=== PATIENT | female | born 1970 | race Caucasian/White ===

== ENCOUNTER 2018-02-02 19:58 | Emergency (ER) | payer BC ==
[2018-02-02] MEDS: ACETAMINOPHEN 325 MG TAB PO (23:09)
[2018-02-02] MEDS: morphine 2 MG INJ IV (23:09)
[2018-02-02] MEDS: ONDANSETRON 4 MG INJ IV (23:10)
[2018-02-02] MEDS: SOD CHLORIDE 0.9% 1,000 ML IV (23:10)
[2018-02-02 23:24] LABS: ADD MAN DIFF? NO
[2018-02-02 23:25] LABS: WHITE BLOOD COUNT 19.3 10^3/ul (4.8-10.8)
[2018-02-02 23:25] LABS: BASOPHIL # 0.1 10^3/ul (0.0-0.1); BASOPHILS % 0.4 % (0.0-2.0); HEMATOCRIT 46.8 % (37.0-47.0); HEMOGLOBIN 15.6 g/dl (12.0-16.0); LYMPHOCYTES # 1.2 10^3/ul (0.8-2.9); MEAN CORPUSCULAR HEMOGLOBIN 30.6 pg (29.0-33.0); MEAN CORPUSCULAR HGB CONC 33.3 g/dl (32.0-37.0); MEAN CORPUSCULAR VOLUME 91.9 fl (82.0-101.0); MEAN PLATELET VOLUME 8.8 fl (7.4-10.4); MONOCYTE # 0.6 10^3/ul (0.3-0.9); NEUTROPHIL # 17.4 10^3/ul (1.6-7.5); NEUTROPHILS % 90.1 % (39.0-77.0); PLATELET COUNT 382 10^3/UL (140-415); RED BLOOD COUNT 5.09 10^6/ul (4.20-5.40); RED CELL DISTRIBUTION WIDTH 12.8 % (11.5-14.5)
[2018-02-02 23:33] LABS: ADD UMIC YES; UR ASCORBIC ACID NEGATIVE (NEGATIVE); UR BILIRUBIN (Dip) NEGATIVE (NEGATIVE); UR BLOOD (Dip) 1+ mg/dL (NEGATIVE); UR CLARITY SLIGHTLY CLOUDY (CLEAR); UR COLOR YELLOW (YELLOW); UR GLUCOSE (Dip) NEGATIVE (NEGATIVE); UR KETONES (Dip) TRACE mg/dL (NEGATIVE); UR LEUKOCYTE ESTERASE (Dip) NEGATIVE Leu/ul (NEGATIVE); UR MUCUS MANY /HPF (NONE SEEN); UR NITRITE (Dip) NEGATIVE (NEGATIVE); UR RBC 3 /HPF (0-5); UR SPECIFIC GRAVITY (Dip) 1.026 (1.003-1.030); UR SQUAMOUS EPITHELIAL CELL FEW /HPF (FEW); UR TOTAL PROTEIN (Dip) NEGATIVE (NEGATIVE); UR UROBILINOGEN (Dip) NEGATIVE (NEGATIVE); UR WBC 10 /HPF (0-5)
[2018-02-02 23:45] LABS: INR 0.95; PARTIAL THROMBOPLASTIN TIME 31.5 Sec (25.0-35.0); PROTIME 12.8 Sec (11.9-14.9)
[2018-02-02 23:52] LABS: ALANINE AMINOTRANSFERASE 46 IU/L (13-69); ALBUMIN/GLOBULIN RATIO 1.35; ALKALINE PHOSPHATASE 81 IU/L (42-121); ANION GAP 15 (8-16); ASPARTATE AMINO TRANSFERASE 32 IU/L (15-46); BILIRUBIN,INDIRECT 0.3 mg/dl (0-1.1); BILIRUBIN,TOTAL 0.3 mg/dl (0.2-1.3); BLOOD UREA NITROGEN 11 mg/dl (7-20); CALCIUM 9.7 mg/dl (8.4-10.2); CARBON DIOXIDE 26 mmol/L (21-31); CHLORIDE 105 mmol/L (97-110); GLUCOSE 132 mg/dl (70-220); LIPASE 49 U/L (23-300); SODIUM 142 mmol/L (135-144); TOTAL PROTEIN 8.7 g/dl (6.1-8.1)
== END 2018-02-03 02:00 | disposition home or self-care (01) ==
LOC: FTE 02-03 02:00
DX: T47.4X1A Poisoning by other laxatives, accidental (unintentional), initial encounter (principal); I10 Essential (primary) hypertension; R11.10 Vomiting, unspecified; R10.84 Generalized abdominal pain
CPT/HCPCS: 36415; 74176; 80053; 81001; 81025; 83690; 85025; 85610; 85730; 96374; 96375; 99285-25

== ENCOUNTER 2018-02-03 12:09 | Day surgery (SDC) | payer BC ==
[2018-02-03] MEDS ORDERED: PROPOFOL 20 ML (15:00)
[2018-02-03] MEDS ORDERED: FENTAnyl 50 MCG/ML VIAL (15:00)
[2018-03-11] MEDS ORDERED: LACTATED RINGER'S 1,000 ML IV* (11:30)
[2018-03-11] MEDS ORDERED: CEFAZOLIN 2 GM/50 ML (PMX) 50 ML IVPB (11:30)
== END 2018-02-03 18:06 | disposition home or self-care (01) ==
LOC: GIL 12:09
DX: K51.814 Other ulcerative colitis with abscess (principal); K63.5 Polyp of colon; E66.9 Obesity, unspecified; Z68.33 Body mass index [BMI] 33.0-33.9, adult; I10 Essential (primary) hypertension
CPT/HCPCS: 45380; 88305

== ENCOUNTER 2018-03-11 13:36 | Day surgery (SDC) | payer BC ==
[~2018-03-11 13:36] MED LIST: GLYCOPYRROLATE 0.4 MG INJ
[2018-03-11] MEDS ORDERED: LIDOCAINE 1% (MPF) 30 ML INJ (16:41)
[2018-03-11] MEDS ORDERED: ONDANSETRON 4 MG INJ (16:42)
[2018-03-11] MEDS ORDERED: SUCCINYLCHOLINE CHLORIDE 100 MG/5 ML SYG IV (16:42)
[2018-03-11] MEDS ORDERED: LIDOCAINE 100 MG SYRINGE (16:42)
[2018-03-11] MEDS ORDERED: ROCURONIUM 50 MG INJ (16:42)
[2018-03-11] MEDS ORDERED: PROPOFOL 20 ML (16:42)
[2018-03-11] MEDS ORDERED: FENTAnyl 50 MCG/ML VIAL (16:42)
[2018-03-11] MEDS ORDERED: DEXAMETHASONE 4 MG/ML 1 ML INJ (17:02)
[2018-03-11] MEDS ORDERED: CEFAZOLIN 1 GM INJ (17:10)
[2018-03-11] MEDS ORDERED: BUPIVACAINE 0.5%/EPI (SDV) 30 ML INJ (17:12)
[2018-03-11] MEDS: BUPIVACAINE 0.5%/EPI (SDV) 30 ML INJ INJ (17:21)
[2018-03-11] MEDS: LIDOCAINE 1% (MPF) 30 ML INJ INJ (17:21)
[2018-03-11] MEDS ORDERED: OXYCODONE/ACETAMINOPHEN (5/325) TAB PO ×2 (18:00)
[2018-03-11] MEDS ORDERED: ONDANSETRON 4 MG INJ IV ×2 (18:00)
[2018-03-11] MEDS ORDERED: KETOROLAC 30 MG INJ IV (18:00)
[2018-03-11] MEDS ORDERED: HYDROCODONE/APAP (5/325) TAB PO (18:00)
[2018-03-11] MEDS ORDERED: FENTAnyl 50 MCG/ML VIAL IV ×2 (18:00)
[2018-03-11] MEDS: HYDROCODONE/APAP (5/325) TAB PO (18:53)
== END 2018-03-11 19:30 | disposition home or self-care (01) ==
LOC: SDS 13:36
DX: K51.90 Ulcerative colitis, unspecified, without complications (principal); K60.3 Anal fistula; K64.4 Residual hemorrhoidal skin tags
CPT/HCPCS: 45300; 88305

== ENCOUNTER 2018-06-07 13:41 | Emergency (ER) | payer BC ==
[2018-06-07 17:26] LABS: ADD MAN DIFF? NO
[2018-06-07] MEDS: ONDANSETRON 4 MG INJ IV (17:26)
[2018-06-07] MEDS: METHYLPREDNISOLONE 125 MG INJ IV (17:26)
[2018-06-07] MEDS: HYDROmorphONE 1 MG/ML SYG IV (17:27)
[2018-06-07] MEDS: SOD CHLORIDE 0.9% 1,000 ML IV (17:27)
[2018-06-07 17:28] LABS: WHITE BLOOD COUNT 9.6 10^3/ul (4.8-10.8)
[2018-06-07 17:28] LABS: BASOPHILS % 0.4 % (0.0-2.0); EOSINOPHILS # 0.1 10^3/ul (0.0-0.5); EOSINOPHILS % 1.3 % (0.0-7.0); HEMATOCRIT 33.5 % (37.0-47.0); HEMOGLOBIN 10.2 g/dl (12.0-16.0); LYMPHOCYTES # 1.9 10^3/ul (0.8-2.9); LYMPHOCYTES % 20.3 % (15.0-51.0); MEAN CORPUSCULAR HEMOGLOBIN 25.1 pg (29.0-33.0); MEAN CORPUSCULAR HGB CONC 30.4 g/dl (32.0-37.0); MEAN CORPUSCULAR VOLUME 82.3 fl (82.0-101.0); MEAN PLATELET VOLUME 8.3 fl (7.4-10.4); MONOCYTE # 0.7 10^3/ul (0.3-0.9); MONOCYTES % 7.5 % (0.0-11.0); NEUTROPHIL # 6.7 10^3/ul (1.6-7.5); NEUTROPHILS % 70.1 % (39.0-77.0); PLATELET COUNT 551 10^3/UL (140-415); RED BLOOD COUNT 4.07 10^6/ul (4.20-5.40); RED CELL DISTRIBUTION WIDTH 14.3 % (11.5-14.5)
[2018-06-07 17:47] LABS: ALANINE AMINOTRANSFERASE 20 IU/L (13-69); ALBUMIN/GLOBULIN RATIO 0.95; ALKALINE PHOSPHATASE 86 IU/L (42-121); ANION GAP 9 (5-13); ASPARTATE AMINO TRANSFERASE 24 IU/L (15-46); BILIRUBIN,INDIRECT 0.3 mg/dl (0-1.1); BILIRUBIN,TOTAL 0.3 mg/dl (0.2-1.3); BLOOD UREA NITROGEN 9 mg/dl (7-20); CALCIUM 8.7 mg/dl (8.4-10.2); CARBON DIOXIDE 25 mmol/L (21-31); CHLORIDE 103 mmol/L (97-110); CREATININE 0.61 mg/dl (0.44-1.00); Estimated GFR > 60 mL/min (>60); GLUCOSE 92 mg/dl (70-220); POTASSIUM 4.1 mmol/L (3.5-5.1); SODIUM 137 mmol/L (135-144); TOTAL PROTEIN 8.2 g/dl (6.1-8.1)
[2018-06-07] MEDS: SOD CHLORIDE 0.9% 100 ML (18:03)
[2018-06-07] MEDS: IOHEXOL 300MG/ML 150 ML BTL (18:04)
== END 2018-06-07 21:40 | disposition home or self-care (01) ==
LOC: E/R 13:41
DX: K51.811 Other ulcerative colitis with rectal bleeding (principal); I10 Essential (primary) hypertension
CPT/HCPCS: 74177; 80053; 85025; 96374; 96375; 99285-25

== ENCOUNTER 2018-08-13 10:09 | Inpatient (IN) | payer BC ==
[2018-08-13 11:10] LABS: ADD MAN DIFF? NO
[2018-08-13 11:11] LABS: WHITE BLOOD COUNT 12.8 10^3/ul (4.8-10.8)
[2018-08-13 11:11] LABS: ABNORMAL IP MESSAGE 1; BASOPHILS % 0.3 % (0.0-2.0); EOSINOPHILS % 0.2 % (0.0-7.0); HEMATOCRIT 28.2 % (37.0-47.0); HEMOGLOBIN 7.8 g/dl (12.0-16.0); LYMPHOCYTES # 1.3 10^3/ul (0.8-2.9); MEAN CORPUSCULAR HEMOGLOBIN 18.5 pg (29.0-33.0); MEAN CORPUSCULAR HGB CONC 27.7 g/dl (32.0-37.0); MEAN PLATELET VOLUME 7.9 fl (7.4-10.4); MONOCYTE # 1.1 10^3/ul (0.3-0.9); MONOCYTES % 8.9 % (0.0-11.0); NEUTROPHIL # 10.2 10^3/ul (1.6-7.5); NEUTROPHILS % 79.9 % (39.0-77.0); NUCLEATED RED BLOOD CELLS% 0.3 /100WBC (0.0-0.0); PLATELET COUNT 631 10^3/UL (140-415); RED BLOOD COUNT 4.21 10^6/ul (4.20-5.40); RED CELL DISTRIBUTION WIDTH 19.4 % (11.5-14.5)
[2018-08-13 11:21] LABS: POSITIVE DIFF @See below
[2018-08-13 11:29] LABS: ALANINE AMINOTRANSFERASE 12 IU/L (13-69); ALBUMIN 3.6 g/dl (3.3-4.9); ALBUMIN/GLOBULIN RATIO 0.87; ALKALINE PHOSPHATASE 96 IU/L (42-121); ANION GAP 11 (5-13); ASPARTATE AMINO TRANSFERASE 16 IU/L (15-46); BILIRUBIN,INDIRECT 0.2 mg/dl (0-1.1); BILIRUBIN,TOTAL 0.2 mg/dl (0.2-1.3); BLOOD UREA NITROGEN 6 mg/dl (7-20); CALCIUM 8.7 mg/dl (8.4-10.2); CARBON DIOXIDE 27 mmol/L (21-31); CHLORIDE 95 mmol/L (97-110); CREATININE 0.76 mg/dl (0.44-1.00); Estimated GFR > 60 mL/min (>60); GLUCOSE 106 mg/dl (70-220); LIPASE 43 U/L (23-300); POTASSIUM 3.7 mmol/L (3.5-5.1); SODIUM 133 mmol/L (135-144); TOTAL PROTEIN 7.7 g/dl (6.1-8.1)
[2018-08-13 11:30] LABS: INR 1.08; PROTIME 14.1 Sec (11.9-14.9); PT RATIO 1.1
[2018-08-13 11:31] LABS: PARTIAL THROMBOPLASTIN TIME 31.8 Sec (23.0-35.0)
[2018-08-13] MEDS: IBUPROFEN 600 MG TAB PO (11:33)
[2018-08-13] MEDS: metroNIDAZOLE 500 MG/NS (PMX) 100 ML IVPB (11:34)
[2018-08-13] MEDS: SOD CHLORIDE 0.9% 1,000 ML IV ×2 (11:35→15:22)
[2018-08-13 11:41] LABS: TROPONIN-I < 0.012 ng/ml (0.000-0.120)
[2018-08-13 12:56] LABS: ADD UMIC YES; UR ASCORBIC ACID NEGATIVE (NEGATIVE); UR BACTERIA FEW /HPF (NONE SEEN); UR BILIRUBIN (Dip) NEGATIVE (NEGATIVE); UR BLOOD (Dip) 1+ mg/dL (NEGATIVE); UR CLARITY CLEAR (CLEAR); UR COLOR STRAW (YELLOW); UR GLUCOSE (Dip) NEGATIVE (NEGATIVE); UR KETONES (Dip) NEGATIVE (NEGATIVE); UR LEUKOCYTE ESTERASE (Dip) TRACE Leu/ul (NEGATIVE); UR NITRITE (Dip) NEGATIVE (NEGATIVE); UR RBC 0 /HPF (0-5); UR SPECIFIC GRAVITY (Dip) 1.003 (1.003-1.030); UR SQUAMOUS EPITHELIAL CELL FEW /HPF (FEW); UR TOTAL PROTEIN (Dip) NEGATIVE (NEGATIVE); UR UROBILINOGEN (Dip) NEGATIVE (NEGATIVE); UR WBC 6 /HPF (0-5)
[2018-08-13] MEDS: LEVOFLOXACIN 750MG/D5W (PMX) 150 ML IVPB (13:21)
[2018-08-13] MEDS ORDERED: ACETAMINOPHEN 1000MG/100ML IV 100 ML IVPB (13:30)
[2018-08-13] MEDS ORDERED: ACETAMINOPHEN 325 MG TAB PO (13:30)
[2018-08-13] MEDS ORDERED: morphine 2 MG INJ IV (13:30)
[2018-08-13] MEDS ORDERED: NACL 0.9% 3 ML SYG IV (13:30)
[2018-08-13] MEDS ORDERED: ONDANSETRON 4 MG INJ IV (13:30)
[2018-08-13] MEDS: PANTOPRAZOLE 40 MG INJ IV (15:21)
[2018-08-13] MEDS: morphine 4 MG/ML VIAL IV ×2 (15:39→20:35)
[2018-08-13] MEDS: HARD FAT/PHENYLEPHRINE SUPP PR ×2 (16:22→23:00)
[2018-08-13] MEDS: METHYLPREDNISOLONE 125 MG INJ IV (16:22)
[2018-08-13] MEDS: PIPER-TAZO 3.375 GM IV (PMX) 100 ML IVPB (18:21)
[2018-08-14] MEDS: PIPER-TAZO 3.375 GM IV (PMX) 100 ML IVPB ×4 (00:02→20:22)
[2018-08-14] MEDS: SOD CHLORIDE 0.9% 1,000 ML IV ×3 (01:11→12:43)
[2018-08-14] MEDS: PANTOPRAZOLE 40 MG INJ IV (05:52)
[2018-08-14 06:25] LABS: ADD MAN DIFF? NO
[2018-08-14 06:29] LABS: ABNORMAL IP MESSAGE 1; BASOPHILS % 0.2 % (0.0-2.0); HEMATOCRIT 24.5 % (37.0-47.0); LYMPHOCYTES # 0.7 10^3/ul (0.8-2.9); MEAN CORPUSCULAR HEMOGLOBIN 18.8 pg (29.0-33.0); MEAN CORPUSCULAR HGB CONC 27.3 g/dl (32.0-37.0); MEAN CORPUSCULAR VOLUME 68.8 fl (82.0-101.0); MEAN PLATELET VOLUME 8.1 fl (7.4-10.4); MONOCYTE # 0.4 10^3/ul (0.3-0.9); MONOCYTES % 5.9 % (0.0-11.0); NEUTROPHIL # 5.3 10^3/ul (1.6-7.5); NEUTROPHILS % 82.4 % (39.0-77.0); PLATELET COUNT 536 10^3/UL (140-415); RED BLOOD COUNT 3.56 10^6/ul (4.20-5.40); RED CELL DISTRIBUTION WIDTH 19.1 % (11.5-14.5)
[2018-08-14 06:29] LABS: WHITE BLOOD COUNT 6.5 10^3/ul (4.8-10.8)
[2018-08-14 06:40] LABS: HEMOGLOBIN 6.7 g/dl (12.0-16.0); POSITIVE DIFF @See below
[2018-08-14 06:53] LABS: ALANINE AMINOTRANSFERASE 16 IU/L (13-69); ALBUMIN 2.9 g/dl (3.3-4.9); ALKALINE PHOSPHATASE 78 IU/L (42-121); ANION GAP 9 (5-13); ASPARTATE AMINO TRANSFERASE 15 IU/L (15-46); BILIRUBIN,INDIRECT 0.1 mg/dl (0-1.1); BILIRUBIN,TOTAL 0.1 mg/dl (0.2-1.3); BLOOD UREA NITROGEN 10 mg/dl (7-20); CALCIUM 8.3 mg/dl (8.4-10.2); CARBON DIOXIDE 24 mmol/L (21-31); CHLORIDE 105 mmol/L (97-110); CREATININE 0.54 mg/dl (0.44-1.00); Estimated GFR > 60 mL/min (>60); GLUCOSE 141 mg/dl (70-220); MAGNESIUM 2.1 mg/dl (1.7-2.5); SODIUM 138 mmol/L (135-144); TOTAL PROTEIN 6.5 g/dl (6.1-8.1)
[2018-08-14 07:04] LABS: POTASSIUM 3.8 mmol/L (3.5-5.1)
[2018-08-14 07:43] LABS: C-REACTIVE PROTEIN > 9.0 mg/dl (0.0-0.9)
[2018-08-14] MEDS: morphine 4 MG/ML VIAL IV ×3 (08:14→22:20)
[2018-08-14 08:15] LABS: ERYTHROCYTE SEDIMENTATION RATE 53 mm/Hr (0-20)
[2018-08-14] MEDS: HARD FAT/PHENYLEPHRINE SUPP PR (08:15)
[2018-08-14] MEDS: METHYLPREDNISOLONE 125 MG INJ IV (08:15)
[2018-08-14] MEDS: POLYETHYLENE GLYCOL 17 GM PACKET PO (08:22)
[2018-08-14] MEDS: HYDROCODONE/APAP (5/325) TAB PO (09:45)
[2018-08-14 10:23] LABS: ANISOCYTOSIS 2+ (0-0); BAND NEUTROPHILS #M 3.5 10^3/ul (0.0-0.6); BAND NEUTROPHILS % (M) 54 % (0-4); HYPOCHROMASIA 2+ (0-0); LYMPHOCYTES #M 0.8 10^3/ul (0.8-2.9); LYMPHOCYTES % (M) 13 % (15-51); MICROCYTOSIS 2+ (0-0); MONOCYTE #M 0.3 10^3/ul (0.3-0.9); MONOCYTES % (M) 5 % (0-11); PLATELET ESTIMATE INCREASED; POIKILOCYTOSIS 1+ (0-0); POLYCHROMASIA 3+ (0-0); SEGMENTED NEUTROPHILS (M) % 28 % (39-77); SMUDGE%M 3 % (0-0)
[2018-08-14] MEDS ORDERED: HARD FAT/PHENYLEPHRINE SUPP PR (13:00)
[2018-08-14] MEDS ORDERED: POLYETHYLENE GLYCOL 17 GM PACKET PO (13:00)
[2018-08-14] MEDS: SOD CHLORIDE 0.9% 250 ML IV* (15:24)
[2018-08-14 21:52] LABS: IMMEDIATE SPIN CROSSMATCH 1 2
[2018-08-15] MEDS: PIPER-TAZO 3.375 GM IV (PMX) 100 ML IVPB ×4 (01:22→18:06)
[2018-08-15] MEDS: METHYLPREDNISOLONE 40 MG INJ IV (04:14)
[2018-08-15] MEDS: DIPHENHYDRAMINE 50 MG INJ IV (04:14)
[2018-08-15] MEDS: PANTOPRAZOLE 40 MG INJ IV (05:19)
[2018-08-15 06:14] LABS: ABNORMAL IP MESSAGE 1; HEMOGLOBIN 8.5 g/dl (12.0-16.0); MEAN CORPUSCULAR HEMOGLOBIN 21.5 pg (29.0-33.0); MEAN CORPUSCULAR HGB CONC 29.3 g/dl (32.0-37.0); MEAN CORPUSCULAR VOLUME 73.2 fl (82.0-101.0); MEAN PLATELET VOLUME 8.2 fl (7.4-10.4); NUCLEATED RED BLOOD CELLS% 0.7 /100WBC (0.0-0.0); PLATELET COUNT 473 10^3/UL (140-415); RED BLOOD COUNT 3.96 10^6/ul (4.20-5.40); RED CELL DISTRIBUTION WIDTH 23.1 % (11.5-14.5)
[2018-08-15 06:14] LABS: WHITE BLOOD COUNT 5.8 10^3/ul (4.8-10.8)
[2018-08-15 06:30] LABS: ANION GAP 7 (5-13); BLOOD UREA NITROGEN 8 mg/dl (7-20); CALCIUM 8.1 mg/dl (8.4-10.2); CARBON DIOXIDE 25 mmol/L (21-31); CHLORIDE 103 mmol/L (97-110); CREATININE 0.59 mg/dl (0.44-1.00); Estimated GFR > 60 mL/min (>60); GLUCOSE 91 mg/dl (70-220); MAGNESIUM 2.1 mg/dl (1.7-2.5); PHOSPHORUS 3.2 mg/dl (2.5-4.9); POTASSIUM 3.6 mmol/L (3.5-5.1); SODIUM 135 mmol/L (135-144)
[2018-08-15 06:55] LABS: ADD MAN DIFF? YES; POSITIVE DIFF @See below
[2018-08-15] MEDS: METHYLPREDNISOLONE 125 MG INJ IV (08:11)
[2018-08-15 08:14] LABS: ANISOCYTOSIS 2+ (0-0); BAND NEUTROPHILS #M 2.1 10^3/ul (0.0-0.6); BAND NEUTROPHILS % (M) 37 % (0-4); EOSINOPHILS % (M) 2 % (0-7); HYPOCHROMASIA 2+ (0-0); LYMPHOCYTES #M 1.5 10^3/ul (0.8-2.9); LYMPHOCYTES % (M) 26 % (15-51); MICROCYTOSIS 2+ (0-0); MONOCYTE #M 0.4 10^3/ul (0.3-0.9); MONOCYTES % (M) 7 % (0-11); PLATELET ESTIMATE NORMAL; POIKILOCYTOSIS 1+ (0-0); POLYCHROMASIA 3+ (0-0); SEG NEUT #M 1.7 10^3/ul (1.6-7.5); SEGMENTED NEUTROPHILS (M) % 28 % (39-77); SMUDGE%M 20 % (0-0); TARGET CELLS 1+ (0-0)
[2018-08-15] MEDS: morphine 4 MG/ML VIAL IV (09:23)
[2018-08-16] MEDS: PIPER-TAZO 3.375 GM IV (PMX) 100 ML IVPB ×5 (00:09→23:32)
[2018-08-16] MEDS: PANTOPRAZOLE 40 MG INJ IV (05:39)
[2018-08-16] MEDS: METHYLPREDNISOLONE 125 MG INJ IV (08:11)
[2018-08-17] MEDS: PIPER-TAZO 3.375 GM IV (PMX) 100 ML IVPB ×4 (06:25→23:57)
[2018-08-17] MEDS: PANTOPRAZOLE 40 MG INJ IV (06:41)
[2018-08-17 07:21] LABS: ADD MAN DIFF? NO
[2018-08-17 07:24] LABS: WHITE BLOOD COUNT 6.8 10^3/ul (4.8-10.8)
[2018-08-17 07:24] LABS: ABNORMAL IP MESSAGE 1; BASOPHILS % 0.1 % (0.0-2.0); EOSINOPHILS # 0.1 10^3/ul (0.0-0.5); EOSINOPHILS % 0.9 % (0.0-7.0); HEMATOCRIT 33.6 % (37.0-47.0); HEMOGLOBIN 9.9 g/dl (12.0-16.0); LYMPHOCYTES # 2.5 10^3/ul (0.8-2.9); LYMPHOCYTES % 36.4 % (15.0-51.0); MEAN CORPUSCULAR HEMOGLOBIN 21.3 pg (29.0-33.0); MEAN CORPUSCULAR HGB CONC 29.5 g/dl (32.0-37.0); MEAN CORPUSCULAR VOLUME 72.3 fl (82.0-101.0); MEAN PLATELET VOLUME 7.9 fl (7.4-10.4); MONOCYTE # 0.6 10^3/ul (0.3-0.9); MONOCYTES % 8.6 % (0.0-11.0); NEUTROPHIL # 3.6 10^3/ul (1.6-7.5); NUCLEATED RED BLOOD CELLS% 0.4 /100WBC (0.0-0.0); PLATELET COUNT 575 10^3/UL (140-415); RED BLOOD COUNT 4.65 10^6/ul (4.20-5.40); RED CELL DISTRIBUTION WIDTH 23.7 % (11.5-14.5)
[2018-08-17 07:26] LABS: POSITIVE DIFF @See below
[2018-08-17 07:50] LABS: ALANINE AMINOTRANSFERASE 18 IU/L (13-69); ALBUMIN 3.2 g/dl (3.3-4.9); ALBUMIN/GLOBULIN RATIO 0.82; ALKALINE PHOSPHATASE 73 IU/L (42-121); ANION GAP 8 (5-13); ASPARTATE AMINO TRANSFERASE 17 IU/L (15-46); BILIRUBIN,INDIRECT 0.2 mg/dl (0-1.1); BILIRUBIN,TOTAL 0.2 mg/dl (0.2-1.3); BLOOD UREA NITROGEN 6 mg/dl (7-20); CALCIUM 8.4 mg/dl (8.4-10.2); CARBON DIOXIDE 28 mmol/L (21-31); CHLORIDE 100 mmol/L (97-110); CREATININE 0.65 mg/dl (0.44-1.00); Estimated GFR > 60 mL/min (>60); GLUCOSE 90 mg/dl (70-220); POTASSIUM 3.4 mmol/L (3.5-5.1); SODIUM 136 mmol/L (135-144); TOTAL PROTEIN 7.1 g/dl (6.1-8.1)
[2018-08-17] MEDS: METHYLPREDNISOLONE 40 MG INJ IV (08:46)
[2018-08-17 10:36] LABS: IRON 26 ug/dl (35-150)
[2018-08-17 10:45] LABS: % IRON SATURATION 9 % SAT (22-52); TOTAL IRON BINDING CAPACITY 287 ug/dl (241-421)
[2018-08-17 11:13] LABS: FERRITIN 21.5 ng/ml (6.2-137.0)
[2018-08-17] MEDS: POTASSIUM CHLORIDE (SR) 20 MEQ TAB PO (15:18)
[2018-08-17] MEDS: SOD FERRIC GLUC COMPLX 125 MG in SOD CHLORIDE 0.9% 100 ML IVPB (18:20)
[2018-08-18] MEDS: PANTOPRAZOLE 40 MG INJ IV (05:23)
[2018-08-18] MEDS: PIPER-TAZO 3.375 GM IV (PMX) 100 ML IVPB ×2 (05:23→11:06)
[2018-08-18 06:01] LABS: ADD MAN DIFF? NO
[2018-08-18 06:03] LABS: WHITE BLOOD COUNT 7.6 10^3/ul (4.8-10.8)
[2018-08-18 06:03] LABS: ABNORMAL IP MESSAGE 1; BASOPHILS % 0.3 % (0.0-2.0); EOSINOPHILS # 0.1 10^3/ul (0.0-0.5); EOSINOPHILS % 1.3 % (0.0-7.0); HEMATOCRIT 34.5 % (37.0-47.0); HEMOGLOBIN 9.9 g/dl (12.0-16.0); LYMPHOCYTES # 2.8 10^3/ul (0.8-2.9); LYMPHOCYTES % 37.1 % (15.0-51.0); MEAN CORPUSCULAR HEMOGLOBIN 21.1 pg (29.0-33.0); MEAN CORPUSCULAR HGB CONC 28.7 g/dl (32.0-37.0); MEAN CORPUSCULAR VOLUME 73.6 fl (82.0-101.0); MEAN PLATELET VOLUME 7.8 fl (7.4-10.4); MONOCYTE # 0.5 10^3/ul (0.3-0.9); MONOCYTES % 6.9 % (0.0-11.0); NEUTROPHIL # 4.1 10^3/ul (1.6-7.5); NEUTROPHILS % 53.4 % (39.0-77.0); PLATELET COUNT 566 10^3/UL (140-415); RED BLOOD COUNT 4.69 10^6/ul (4.20-5.40); RED CELL DISTRIBUTION WIDTH 23.8 % (11.5-14.5)
[2018-08-18 06:11] LABS: POSITIVE DIFF @See below
[2018-08-18 06:39] LABS: C-REACTIVE PROTEIN 5.2 mg/dl (0.0-0.9)
[2018-08-18 07:23] LABS: ERYTHROCYTE SEDIMENTATION RATE 36 mm/Hr (0-20)
[2018-08-18] MEDS: METHYLPREDNISOLONE 40 MG INJ IV (08:30)
[2018-08-18] MEDS: SOD FERRIC GLUC COMPLX 125 MG in SOD CHLORIDE 0.9% 100 ML IVPB (12:05)
== END 2018-08-18 17:00 | disposition home or self-care (01) | DRG 872 ==
LOC: FTE 10:09 → PP2 13:07
PROC: 30233N1 Transfusion of Nonautologous Red Blood Cells into Peripheral Vein, Percutaneous Approach (ICD-10-PCS; principal; 2018-08-14)
DX: A41.9 Sepsis, unspecified organism (principal); K92.1 Melena; A09 Infectious gastroenteritis and colitis, unspecified; D62 Acute posthemorrhagic anemia; K58.0 Irritable bowel syndrome with diarrhea; I10 Essential (primary) hypertension; R50.9 Fever, unspecified; K21.9 Gastro-esophageal reflux disease without esophagitis; K80.20 Calculus of gallbladder without cholecystitis without obstruction; K64.9 Unspecified hemorrhoids; Z90.710 Acquired absence of both cervix and uterus
CPT/HCPCS: 36415; 36430; 70450; 71045; 74176; 80048; 80053; 81001; 82728; 83036; 83540; 83605; 83690; 83735; 84100; 84484; 85025; 85610; 85651; 85730; 86140; 86850; 86900; 86901; 86920; 87040; 87045; 87075; 87086; 90686; 93005; 99291-25

== ENCOUNTER 2018-10-22 11:32 | Emergency (ER) | payer BC ==
[2018-10-22 13:13] LABS: ADD MAN DIFF? NO
[2018-10-22 13:15] LABS: URINE PH (Dip) POC 6.5 (5.0-8.5)
[2018-10-22 13:15] LABS: URINE BLOOD (Dip) POC 1+ (NEGATIVE); URINE GLUCOSE (Dip) POC Negative (NEGATIVE); URINE KETONES (Dip) POC Negative (NEGATIVE); URINE LEUKOCYTE EST (Dip) POC 1+ (NEGATIVE); URINE NITRITE (Dip) POC Negative (NEGATIVE); URINE TOTAL PROTEIN POC Trace (NEGATIVE)
[2018-10-22 13:19] LABS: ABNORMAL IP MESSAGE 1; BASOPHILS % 0.3 % (0.0-2.0); EOSINOPHILS # 0.1 10^3/ul (0.0-0.5); EOSINOPHILS % 0.8 % (0.0-7.0); HEMATOCRIT 29.4 % (37.0-47.0); HEMOGLOBIN 8.5 g/dl (12.0-16.0); LYMPHOCYTES # 1.2 10^3/ul (0.8-2.9); LYMPHOCYTES % 12.2 % (15.0-51.0); MEAN CORPUSCULAR HEMOGLOBIN 22.3 pg (29.0-33.0); MEAN CORPUSCULAR HGB CONC 28.9 g/dl (32.0-37.0); MEAN CORPUSCULAR VOLUME 77.2 fl (82.0-101.0); MEAN PLATELET VOLUME 7.7 fl (7.4-10.4); MONOCYTE # 0.9 10^3/ul (0.3-0.9); MONOCYTES % 9.4 % (0.0-11.0); NEUTROPHIL # 7.2 10^3/ul (1.6-7.5); NEUTROPHILS % 76.5 % (39.0-77.0); NUCLEATED RED BLOOD CELLS% 0.2 /100WBC (0.0-0.0); PLATELET COUNT 623 10^3/UL (140-415); RED BLOOD COUNT 3.81 10^6/ul (4.20-5.40); RED CELL DISTRIBUTION WIDTH 18.5 % (11.5-14.5)
[2018-10-22 13:19] LABS: WHITE BLOOD COUNT 9.5 10^3/ul (4.8-10.8)
[2018-10-22 13:22] LABS: POSITIVE DIFF @See below
[2018-10-22] MEDS: ACETAMINOPHEN 500 MG TAB PO (13:27)
[2018-10-22 13:39] LABS: ALANINE AMINOTRANSFERASE 15 IU/L (13-69); ALBUMIN/GLOBULIN RATIO 0.78; ALKALINE PHOSPHATASE 106 IU/L (42-121); ANION GAP 10 (5-13); ASPARTATE AMINO TRANSFERASE 14 IU/L (15-46); BILIRUBIN,INDIRECT 0.2 mg/dl (0-1.1); BILIRUBIN,TOTAL 0.2 mg/dl (0.2-1.3); BLOOD UREA NITROGEN 8 mg/dl (7-20); CALCIUM 7.8 mg/dl (8.4-10.2); CARBON DIOXIDE 26 mmol/L (21-31); CHLORIDE 98 mmol/L (97-110); CREATININE 0.88 mg/dl (0.44-1.00); Estimated GFR > 60 mL/min (>60); GLUCOSE 126 mg/dl (70-220); POTASSIUM 3.9 mmol/L (3.5-5.1); SODIUM 134 mmol/L (135-144); TOTAL PROTEIN 6.8 g/dl (6.1-8.1)
[2018-10-22] MEDS: KETOROLAC 15 MG INJ IV (14:09)
[2018-10-22] MEDS: SOD CHLORIDE 0.9% 1,000 ML IV (14:09)
== END 2018-10-22 15:54 | disposition home or self-care (01) ==
LOC: E/R 11:32
DX: J06.9 Acute upper respiratory infection, unspecified (principal); I10 Essential (primary) hypertension
CPT/HCPCS: 36415; 71045; 80053; 81003; 85025; 87400; 96374; 99284-25

== ENCOUNTER 2018-10-22 20:13 | Inpatient (IN) | payer BC ==
[2018-10-22] MEDS: SODIUM CHLORIDE 0.9% 1L BAG IV* (22:18)
[2018-10-22 22:20] LABS: ADD MAN DIFF? NO
[2018-10-22 22:22] LABS: WHITE BLOOD COUNT 7.4 10^3/ul (4.8-10.8)
[2018-10-22 22:22] LABS: BASOPHILS % 0.4 % (0.0-2.0); EOSINOPHILS # 0.1 10^3/ul (0.0-0.5); EOSINOPHILS % 1.2 % (0.0-7.0); HEMATOCRIT 26.4 % (37.0-47.0); HEMOGLOBIN 7.7 g/dl (12.0-16.0); LYMPHOCYTES # 0.9 10^3/ul (0.8-2.9); LYMPHOCYTES % 11.9 % (15.0-51.0); MEAN CORPUSCULAR HEMOGLOBIN 22.6 pg (29.0-33.0); MEAN CORPUSCULAR HGB CONC 29.2 g/dl (32.0-37.0); MEAN CORPUSCULAR VOLUME 77.4 fl (82.0-101.0); MEAN PLATELET VOLUME 7.6 fl (7.4-10.4); MONOCYTE # 0.9 10^3/ul (0.3-0.9); MONOCYTES % 12.7 % (0.0-11.0); NEUTROPHIL # 5.4 10^3/ul (1.6-7.5); PLATELET COUNT 533 10^3/UL (140-415); RED BLOOD COUNT 3.41 10^6/ul (4.20-5.40); RED CELL DISTRIBUTION WIDTH 18.3 % (11.5-14.5)
[2018-10-22 22:42] LABS: ANION GAP 8 (5-13); BLOOD UREA NITROGEN 8 mg/dl (7-20); CALCIUM 7.6 mg/dl (8.4-10.2); CARBON DIOXIDE 24 mmol/L (21-31); CHLORIDE 101 mmol/L (97-110); CREATININE 0.71 mg/dl (0.44-1.00); Estimated GFR > 60 mL/min (>60); GLUCOSE 128 mg/dl (70-220); POTASSIUM 3.6 mmol/L (3.5-5.1); SODIUM 133 mmol/L (135-144)
[2018-10-22 22:52] LABS: TROPONIN-I < 0.012 ng/ml (0.000-0.120)
[2018-10-22] MEDS: KETOROLAC 30 MG INJ IV (22:57)
[2018-10-22 23:06] LABS: LACTIC ACID 2.5 mmol/L (0.5-2.0)
[2018-10-22] MEDS: PIPER-TAZO 3.375 GM IV (PMX) 100 ML IVPB ×2 (23:10→23:34)
[2018-10-22] MEDS: SOD CHLORIDE 0.9% 100 ML (23:34)
[2018-10-22] MEDS: IOHEXOL 300MG/ML 150 ML BTL (23:34)
[2018-10-23] MEDS ORDERED: NACL 0.9% 3 ML SYG IV (00:30)
[2018-10-23] MEDS ORDERED: ONDANSETRON 4 MG INJ IV ×2 (00:30)
[2018-10-23] MEDS ORDERED: ACETAMINOPHEN 325 MG TAB PO ×2 (00:30)
[2018-10-23] MEDS ORDERED: ALBUTEROL/IPRATROPIUM (NEB) 3 ML AMP HHN (00:30)
[2018-10-23] MEDS ORDERED: NON-FORMULARY/PATIENT OWN MED (Adalimumab (Humira) 40 MG) SQ (00:30)
[2018-10-23 00:39] LABS: LACTIC ACID 0.9 mmol/L (0.5-2.0)
[2018-10-23 01:20] LABS: LACTIC ACID 1.1 mmol/L (0.5-2.0)
[2018-10-23 06:20] LABS: WHITE BLOOD COUNT 7.4 10^3/ul (4.8-10.8)
[2018-10-23 06:20] LABS: HEMATOCRIT 28.9 % (37.0-47.0); HEMOGLOBIN 8.4 g/dl (12.0-16.0); MEAN CORPUSCULAR HEMOGLOBIN 22.6 pg (29.0-33.0); MEAN CORPUSCULAR HGB CONC 29.1 g/dl (32.0-37.0); MEAN CORPUSCULAR VOLUME 77.7 fl (82.0-101.0); MEAN PLATELET VOLUME 7.8 fl (7.4-10.4); PLATELET COUNT 590 10^3/UL (140-415); RED BLOOD COUNT 3.72 10^6/ul (4.20-5.40); RED CELL DISTRIBUTION WIDTH 18.1 % (11.5-14.5)
[2018-10-23] MEDS: PANTOPRAZOLE (EC) 40 MG TAB PO (06:26)
[2018-10-23] MEDS: PIPER-TAZO 3.375 GM IV (PMX) 100 ML IVPB ×2 (06:26→12:06)
[2018-10-23 06:47] LABS: ADD MAN DIFF? YES; POSITIVE DIFF @See below
[2018-10-23 06:56] LABS: ALANINE AMINOTRANSFERASE 13 IU/L (13-69); ALBUMIN 2.6 g/dl (3.3-4.9); ALBUMIN/GLOBULIN RATIO 0.72; ALKALINE PHOSPHATASE 114 IU/L (42-121); ANION GAP 4 (5-13); ASPARTATE AMINO TRANSFERASE 21 IU/L (15-46); BILIRUBIN,INDIRECT 0.2 mg/dl (0-1.1); BILIRUBIN,TOTAL 0.2 mg/dl (0.2-1.3); BLOOD UREA NITROGEN 6 mg/dl (7-20); CALCIUM 7.9 mg/dl (8.4-10.2); CARBON DIOXIDE 26 mmol/L (21-31); CHLORIDE 106 mmol/L (97-110); Estimated GFR > 60 mL/min (>60); GLUCOSE 107 mg/dl (70-220); PHOSPHORUS 3.4 mg/dl (2.5-4.9); POTASSIUM 3.4 mmol/L (3.5-5.1); SODIUM 136 mmol/L (135-144); TOTAL PROTEIN 6.2 g/dl (6.1-8.1)
[2018-10-23 08:04] LABS: ANISOCYTOSIS 1+ (0-0); BAND NEUTROPHILS #M 2.9 10^3/ul (0.0-0.6); BAND NEUTROPHILS % (M) 40 % (0-4); EOSINOPHILS % (M) 4 % (0-7); GIANT THROMBO% (M) 2 % (0-0); HYPOCHROMASIA 1+ (0-0); LYMPHOCYTES #M 1.1 10^3/ul (0.8-2.9); LYMPHOCYTES % (M) 16 % (15-51); METAMYELOCYTES %M 1 % (0-0); MICROCYTOSIS 1+ (0-0); MONOCYTE #M 0.8 10^3/ul (0.3-0.9); MONOCYTES % (M) 11 % (0-11); PLATELET ESTIMATE INCREASED; POIKILOCYTOSIS 1+ (0-0); POLYCHROMASIA 3+ (0-0); SEG NEUT #M 2.3 10^3/ul (1.6-7.5); SEGMENTED NEUTROPHILS (M) % 28 % (39-77); SMUDGE%M 4 % (0-0); TARGET CELLS 1+ (0-0)
[2018-10-23] MEDS ORDERED: MESALAMINE PO (09:00)
[2018-10-23] MEDS ORDERED: HEPARIN 5,000 UNIT/1 ML VIAL SC (09:00)
[2018-10-23] MEDS: METHYLPREDNISOLONE 125 MG INJ IV ×2 (09:25→09:28)
[2018-10-23] MEDS: LORATADINE 10 MG TAB PO (09:25)
[2018-10-23] MEDS: LISINOPRIL 10 MG TAB PO (09:25)
[2018-10-23 09:32] LABS: OCCULT BLOOD STOOL NEGATIVE (NEGATIVE)
[2018-10-23] MEDS ORDERED: GUAIFENESIN/CODEINE 5ML CUP PO (13:30)
[2018-10-23] MEDS: POTASSIUM CHLORIDE 20 MEQ POWDER FOR ORAL SOLN PO (14:52)
[2018-10-23] MEDS: SOD CHLORIDE 0.9% 1,000 ML IV (14:53)
[2018-10-23] MEDS: metroNIDAZOLE 500 MG TAB PO ×2 (15:17→22:13)
[2018-10-23] MEDS: CIPROFLOXACIN 500 MG TAB PO (18:18)
[2018-10-23 21:31] LABS: ADD UMIC YES; UR ASCORBIC ACID 40 mg/dL (NEGATIVE); UR BILIRUBIN (Dip) NEGATIVE (NEGATIVE); UR BLOOD (Dip) NEGATIVE (NEGATIVE); UR CLARITY CLEAR (CLEAR); UR COLOR YELLOW (YELLOW); UR GLUCOSE (Dip) 3+ mg/dL (NEGATIVE); UR KETONES (Dip) TRACE mg/dL (NEGATIVE); UR LEUKOCYTE ESTERASE (Dip) TRACE Leu/ul (NEGATIVE); UR MUCUS FEW /HPF (NONE SEEN); UR NITRITE (Dip) NEGATIVE (NEGATIVE); UR RBC 1 /HPF (0-5); UR SPECIFIC GRAVITY (Dip) 1.025 (1.003-1.030); UR SQUAMOUS EPITHELIAL CELL FEW /HPF (FEW); UR TOTAL PROTEIN (Dip) NEGATIVE (NEGATIVE); UR UROBILINOGEN (Dip) 1+ mg/dL (NEGATIVE); UR WBC 3 /HPF (0-5)
[2018-10-24] MEDS: SOD CHLORIDE 0.9% 1,000 ML IV (04:01)
[2018-10-24 06:35] LABS: WHITE BLOOD COUNT 7.1 10^3/ul (4.8-10.8)
[2018-10-24 06:35] LABS: ABNORMAL IP MESSAGE 1; HEMATOCRIT 23.6 % (37.0-47.0); MEAN CORPUSCULAR HEMOGLOBIN 22.2 pg (29.0-33.0); MEAN CORPUSCULAR HGB CONC 28.4 g/dl (32.0-37.0); MEAN CORPUSCULAR VOLUME 78.1 fl (82.0-101.0); PLATELET COUNT 500 10^3/UL (140-415); RED BLOOD COUNT 3.02 10^6/ul (4.20-5.40)
[2018-10-24] MEDS: PANTOPRAZOLE (EC) 40 MG TAB PO (06:43)
[2018-10-24] MEDS: CIPROFLOXACIN 500 MG TAB PO (06:43)
[2018-10-24] MEDS: metroNIDAZOLE 500 MG TAB PO ×2 (06:43→13:35)
[2018-10-24 07:00] LABS: ANION GAP 6 (5-13); BLOOD UREA NITROGEN 9 mg/dl (7-20); CALCIUM 7.8 mg/dl (8.4-10.2); CARBON DIOXIDE 25 mmol/L (21-31); CHLORIDE 108 mmol/L (97-110); CREATININE 0.49 mg/dl (0.44-1.00); Estimated GFR > 60 mL/min (>60); GLUCOSE 105 mg/dl (70-220); PHOSPHORUS 3.3 mg/dl (2.5-4.9); POTASSIUM 3.9 mmol/L (3.5-5.1); SODIUM 139 mmol/L (135-144)
[2018-10-24 07:06] LABS: ADD MAN DIFF? YES; HEMOGLOBIN 6.7 g/dl (12.0-16.0); POSITIVE DIFF @See below
[2018-10-24 10:01] LABS: ANISOCYTOSIS 2+ (0-0); BAND NEUTROPHILS % (M) 43 % (0-4); BASOPHILS % (M) 1 % (0-2); ERYTHROBLAST% (NRBC) (M) 1 % (0-0); GIANT THROMBO% (M) 2 % (0-0); HYPOCHROMASIA 1+ (0-0); LYMPHOCYTES #M 1.1 10^3/ul (0.8-2.9); LYMPHOCYTES % (M) 16 % (15-51); MICROCYTOSIS 2+ (0-0); MONOCYTE #M 0.4 10^3/ul (0.3-0.9); MONOCYTES % (M) 7 % (0-11); PLATELET ESTIMATE NORMAL; POIKILOCYTOSIS 1+ (0-0); POLYCHROMASIA 3+ (0-0); REACTIVE LYMPHOCYTES #M 0.2 10^3/ul (0.0-0.0); REACTIVE LYMPHOCYTES% (M) 3 % (0-0); SEG NEUT #M 2.4 10^3/ul (1.6-7.5); SEGMENTED NEUTROPHILS (M) % 31 % (39-77); SMUDGE%M 6 % (0-0); TARGET CELLS 1+ (0-0)
[2018-10-24] MEDS: predniSONE 20 MG TAB PO (10:04)
[2018-10-24] MEDS: LORATADINE 10 MG TAB PO (10:04)
[2018-10-24] MEDS: LISINOPRIL 10 MG TAB PO (10:05)
[2018-10-24] MEDS: MESALAMINE (EC) 400 MG CAP PO ×2 (13:44→18:18)
[2018-10-24 14:29] LABS: IMMEDIATE SPIN CROSSMATCH 1 3
[2018-10-24] MEDS: CIPROFLOXACIN 400MG/D5W 200 ML IVPB (21:29)
[2018-10-24] MEDS: metroNIDAZOLE 500 MG/NS (PMX) 100 ML IVPB (22:50)
[2018-10-25 05:15] LABS: ADD MAN DIFF? NO
[2018-10-25 05:32] LABS: WHITE BLOOD COUNT 7.4 10^3/ul (4.8-10.8)
[2018-10-25 05:33] LABS: BASOPHILS % 0.3 % (0.0-2.0); EOSINOPHILS % 0.4 % (0.0-7.0); HEMATOCRIT 33.7 % (37.0-47.0); HEMOGLOBIN 10.4 g/dl (12.0-16.0); LYMPHOCYTES # 1.8 10^3/ul (0.8-2.9); MEAN CORPUSCULAR HEMOGLOBIN 24.2 pg (29.0-33.0); MEAN CORPUSCULAR HGB CONC 30.9 g/dl (32.0-37.0); MEAN CORPUSCULAR VOLUME 78.4 fl (82.0-101.0); MEAN PLATELET VOLUME 7.9 fl (7.4-10.4); MONOCYTE # 0.6 10^3/ul (0.3-0.9); MONOCYTES % 7.4 % (0.0-11.0); NEUTROPHIL # 4.9 10^3/ul (1.6-7.5); NEUTROPHILS % 65.9 % (39.0-77.0); NUCLEATED RED BLOOD CELLS # 0.1 10^3/ul (0.0-0.0); NUCLEATED RED BLOOD CELLS% 0.7 /100WBC (0.0-0.0); PLATELET COUNT 514 10^3/UL (140-415); RED CELL DISTRIBUTION WIDTH 17.1 % (11.5-14.5)
[2018-10-25] MEDS: metroNIDAZOLE 500 MG/NS (PMX) 100 ML IVPB ×3 (05:41→22:55)
[2018-10-25 06:04] LABS: ANION GAP 6 (5-13); BLOOD UREA NITROGEN 8 mg/dl (7-20); CALCIUM 8.2 mg/dl (8.4-10.2); CARBON DIOXIDE 27 mmol/L (21-31); CHLORIDE 107 mmol/L (97-110); CREATININE 0.56 mg/dl (0.44-1.00); Estimated GFR > 60 mL/min (>60); GLUCOSE 112 mg/dl (70-220); PHOSPHORUS 3.9 mg/dl (2.5-4.9); POTASSIUM 4.1 mmol/L (3.5-5.1); SODIUM 140 mmol/L (135-144)
[2018-10-25] MEDS: PANTOPRAZOLE (EC) 40 MG TAB PO (06:42)
[2018-10-25] MEDS: METHYLPREDNISOLONE 125 MG INJ IV (08:00)
[2018-10-25] MEDS: LISINOPRIL 10 MG TAB PO (08:00)
[2018-10-25] MEDS: MESALAMINE (EC) 400 MG CAP PO ×3 (08:00→18:38)
[2018-10-25] MEDS: LORATADINE 10 MG TAB PO (08:01)
[2018-10-25] MEDS: CIPROFLOXACIN 400MG/D5W 200 ML IVPB ×2 (08:03→21:45)
[2018-10-25] MEDS ORDERED: predniSONE 20 MG TAB PO (09:00)
[2018-10-25 09:48] LABS: IRON 14 ug/dl (35-150)
[2018-10-25 09:58] LABS: % IRON SATURATION 7 % SAT (22-52); TOTAL IRON BINDING CAPACITY 211 ug/dl (241-421)
[2018-10-25] MEDS: SOD FERRIC GLUC COMPLX 125 MG in SOD CHLORIDE 0.9% 100 ML IVPB (16:49)
[2018-10-26] MEDS: metroNIDAZOLE 500 MG/NS (PMX) 100 ML IVPB ×3 (05:21→22:16)
[2018-10-26] MEDS: PANTOPRAZOLE (EC) 40 MG TAB PO (06:36)
[2018-10-26] MEDS: MESALAMINE (EC) 400 MG CAP PO ×3 (08:37→17:30)
[2018-10-26] MEDS: METHYLPREDNISOLONE 125 MG INJ IV (08:38)
[2018-10-26] MEDS: LORATADINE 10 MG TAB PO (08:39)
[2018-10-26] MEDS: CIPROFLOXACIN 400MG/D5W 200 ML IVPB ×2 (08:39→20:48)
[2018-10-26] MEDS: LISINOPRIL 10 MG TAB PO (08:40)
[2018-10-26 09:24] LABS: ADD MAN DIFF? NO
[2018-10-26 09:38] LABS: WHITE BLOOD COUNT 10.3 10^3/ul (4.8-10.8)
[2018-10-26 09:38] LABS: BASOPHIL # 0.1 10^3/ul (0.0-0.1); BASOPHILS % 0.6 % (0.0-2.0); EOSINOPHILS % 0.4 % (0.0-7.0); HEMATOCRIT 38.8 % (37.0-47.0); HEMOGLOBIN 11.8 g/dl (12.0-16.0); LYMPHOCYTES # 2.8 10^3/ul (0.8-2.9); LYMPHOCYTES % 27.3 % (15.0-51.0); MEAN CORPUSCULAR HEMOGLOBIN 24.1 pg (29.0-33.0); MEAN CORPUSCULAR HGB CONC 30.4 g/dl (32.0-37.0); MEAN CORPUSCULAR VOLUME 79.2 fl (82.0-101.0); MONOCYTE # 0.3 10^3/ul (0.3-0.9); NEUTROPHIL # 6.7 10^3/ul (1.6-7.5); NUCLEATED RED BLOOD CELLS% 0.3 /100WBC (0.0-0.0); RED CELL DISTRIBUTION WIDTH 17.4 % (11.5-14.5)
[2018-10-26 09:39] LABS: PLATELET COUNT 696 10^3/UL (140-415); POSITIVE DIFF @See below
[2018-10-26 10:27] LABS: ALBUMIN 2.8 g/dl (3.3-4.9); ANION GAP 9 (5-13); BLOOD UREA NITROGEN 10 mg/dl (7-20); CALCIUM 8.6 mg/dl (8.4-10.2); CARBON DIOXIDE 28 mmol/L (21-31); CHLORIDE 101 mmol/L (97-110); CREATININE 0.51 mg/dl (0.44-1.00); GLUCOSE 126 mg/dl (70-220); MAGNESIUM 1.9 mg/dl (1.7-2.5); PHOSPHORUS 3.8 mg/dl (2.5-4.9); POTASSIUM 4.1 mmol/L (3.5-5.1); SODIUM 138 mmol/L (135-144)
[2018-10-26 10:37] LABS: ERYTHROCYTE SEDIMENTATION RATE 39 mm/Hr (0-20)
[2018-10-26 11:24] LABS: C-REACTIVE PROTEIN 5.9 mg/dl (0.0-0.9)
[2018-10-27 05:32] LABS: ADD MAN DIFF? NO
[2018-10-27] MEDS: metroNIDAZOLE 500 MG/NS (PMX) 100 ML IVPB ×3 (05:57→22:11)
[2018-10-27] MEDS: PANTOPRAZOLE (EC) 40 MG TAB PO (06:00)
[2018-10-27 06:21] LABS: ALBUMIN 2.6 g/dl (3.3-4.9); ANION GAP 4 (5-13); BASOPHILS % 0.3 % (0.0-2.0); BLOOD UREA NITROGEN 16 mg/dl (7-20); CALCIUM 8.3 mg/dl (8.4-10.2); CARBON DIOXIDE 27 mmol/L (21-31); CHLORIDE 107 mmol/L (97-110); CREATININE 0.69 mg/dl (0.44-1.00); EOSINOPHILS % 0.2 % (0.0-7.0); GLUCOSE 99 mg/dl (70-220); HEMATOCRIT 35.4 % (37.0-47.0); HEMOGLOBIN 10.7 g/dl (12.0-16.0); LYMPHOCYTES # 2.4 10^3/ul (0.8-2.9); LYMPHOCYTES % 15.7 % (15.0-51.0); MAGNESIUM 2.1 mg/dl (1.7-2.5); MEAN CORPUSCULAR HEMOGLOBIN 24.3 pg (29.0-33.0); MEAN CORPUSCULAR HGB CONC 30.2 g/dl (32.0-37.0); MEAN CORPUSCULAR VOLUME 80.3 fl (82.0-101.0); MEAN PLATELET VOLUME 7.7 fl (7.4-10.4); MONOCYTE # 0.7 10^3/ul (0.3-0.9); MONOCYTES % 4.5 % (0.0-11.0); NEUTROPHIL # 12.1 10^3/ul (1.6-7.5); NEUTROPHILS % 77.6 % (39.0-77.0); NUCLEATED RED BLOOD CELLS% 0.2 /100WBC (0.0-0.0); PHOSPHORUS 3.8 mg/dl (2.5-4.9); PLATELET COUNT 587 10^3/UL (140-415); POTASSIUM 3.9 mmol/L (3.5-5.1); RED BLOOD COUNT 4.41 10^6/ul (4.20-5.40); RED CELL DISTRIBUTION WIDTH 17.7 % (11.5-14.5); SODIUM 138 mmol/L (135-144)
[2018-10-27 06:21] LABS: WHITE BLOOD COUNT 15.6 10^3/ul (4.8-10.8)
[2018-10-27 06:30] LABS: C-REACTIVE PROTEIN 4.7 mg/dl (0.0-0.9)
[2018-10-27 07:51] LABS: ERYTHROCYTE SEDIMENTATION RATE 25 mm/Hr (0-20)
[2018-10-27] MEDS: CIPROFLOXACIN 400MG/D5W 200 ML IVPB ×2 (08:54→20:38)
[2018-10-27] MEDS: LORATADINE 10 MG TAB PO (08:55)
[2018-10-27] MEDS: MESALAMINE (EC) 400 MG CAP PO ×3 (08:55→18:23)
[2018-10-27] MEDS: LISINOPRIL 10 MG TAB PO (08:56)
[2018-10-27] MEDS: METHYLPREDNISOLONE 125 MG INJ IV (08:59)
[2018-10-28 05:48] LABS: ADD MAN DIFF? NO
[2018-10-28 05:52] LABS: WHITE BLOOD COUNT 15.2 10^3/ul (4.8-10.8)
[2018-10-28 05:52] LABS: BASOPHILS % 0.1 % (0.0-2.0); EOSINOPHILS % 0.2 % (0.0-7.0); HEMATOCRIT 37.8 % (37.0-47.0); HEMOGLOBIN 11.3 g/dl (12.0-16.0); LYMPHOCYTES # 2.5 10^3/ul (0.8-2.9); LYMPHOCYTES % 16.5 % (15.0-51.0); MEAN CORPUSCULAR HEMOGLOBIN 23.8 pg (29.0-33.0); MEAN CORPUSCULAR HGB CONC 29.9 g/dl (32.0-37.0); MEAN CORPUSCULAR VOLUME 79.6 fl (82.0-101.0); MEAN PLATELET VOLUME 7.7 fl (7.4-10.4); MONOCYTE # 0.8 10^3/ul (0.3-0.9); MONOCYTES % 5.3 % (0.0-11.0); NEUTROPHIL # 11.7 10^3/ul (1.6-7.5); NEUTROPHILS % 76.5 % (39.0-77.0); PLATELET COUNT 544 10^3/UL (140-415); RED BLOOD COUNT 4.75 10^6/ul (4.20-5.40); RED CELL DISTRIBUTION WIDTH 18.3 % (11.5-14.5)
[2018-10-28] MEDS: metroNIDAZOLE 500 MG/NS (PMX) 100 ML IVPB ×3 (06:15→23:13)
[2018-10-28] MEDS: PANTOPRAZOLE (EC) 40 MG TAB PO (06:17)
[2018-10-28 06:49] LABS: ALBUMIN 2.6 g/dl (3.3-4.9); ANION GAP 6 (5-13); BLOOD UREA NITROGEN 15 mg/dl (7-20); CALCIUM 8.8 mg/dl (8.4-10.2); CARBON DIOXIDE 30 mmol/L (21-31); CHLORIDE 103 mmol/L (97-110); GLUCOSE 94 mg/dl (70-220); MAGNESIUM 2.2 mg/dl (1.7-2.5); PHOSPHORUS 4.4 mg/dl (2.5-4.9); POTASSIUM 4.7 mmol/L (3.5-5.1); SODIUM 139 mmol/L (135-144)
[2018-10-28] MEDS: LORATADINE 10 MG TAB PO (08:59)
[2018-10-28] MEDS: CIPROFLOXACIN 400MG/D5W 200 ML IVPB ×2 (08:59→21:58)
[2018-10-28] MEDS: predniSONE 10 MG TAB PO ×2 (08:59→21:58)
[2018-10-28] MEDS: LISINOPRIL 10 MG TAB PO (09:00)
[2018-10-28] MEDS: MESALAMINE (EC) 400 MG CAP PO ×3 (09:03→18:03)
[2018-10-29 05:36] LABS: ADD MAN DIFF? NO
[2018-10-29 05:40] LABS: BASOPHILS % 0.2 % (0.0-2.0); EOSINOPHILS % 0.1 % (0.0-7.0); HEMATOCRIT 39.1 % (37.0-47.0); HEMOGLOBIN 11.8 g/dl (12.0-16.0); LYMPHOCYTES # 1.1 10^3/ul (0.8-2.9); LYMPHOCYTES % 9.3 % (15.0-51.0); MEAN CORPUSCULAR HEMOGLOBIN 24.1 pg (29.0-33.0); MEAN CORPUSCULAR HGB CONC 30.2 g/dl (32.0-37.0); MEAN CORPUSCULAR VOLUME 79.8 fl (82.0-101.0); MEAN PLATELET VOLUME 7.5 fl (7.4-10.4); MONOCYTE # 0.2 10^3/ul (0.3-0.9); MONOCYTES % 1.8 % (0.0-11.0); NEUTROPHIL # 9.9 10^3/ul (1.6-7.5); NEUTROPHILS % 87.4 % (39.0-77.0); PLATELET COUNT 537 10^3/UL (140-415); RED CELL DISTRIBUTION WIDTH 18.6 % (11.5-14.5)
[2018-10-29 05:40] LABS: WHITE BLOOD COUNT 11.4 10^3/ul (4.8-10.8)
[2018-10-29] MEDS: PANTOPRAZOLE (EC) 40 MG TAB PO (06:00)
[2018-10-29 06:09] LABS: ALBUMIN 2.9 g/dl (3.3-4.9); ANION GAP 7 (5-13); BLOOD UREA NITROGEN 13 mg/dl (7-20); CALCIUM 8.9 mg/dl (8.4-10.2); CARBON DIOXIDE 26 mmol/L (21-31); CHLORIDE 106 mmol/L (97-110); CREATININE 0.49 mg/dl (0.44-1.00); GLUCOSE 138 mg/dl (70-220); MAGNESIUM 2.3 mg/dl (1.7-2.5); PHOSPHORUS 3.9 mg/dl (2.5-4.9); POTASSIUM 4.1 mmol/L (3.5-5.1); SODIUM 139 mmol/L (135-144)
[2018-10-29] MEDS: MESALAMINE (EC) 400 MG CAP PO ×2 (08:48→11:59)
[2018-10-29] MEDS: LISINOPRIL 10 MG TAB PO (08:48)
[2018-10-29] MEDS: predniSONE 10 MG TAB PO (08:48)
[2018-10-29] MEDS: LORATADINE 10 MG TAB PO (11:59)
== END 2018-10-29 14:30 | disposition home or self-care (01) | DRG 872 ==
LOC: E/R 20:13 → 2NE 23:48
PROC: 30233N1 Transfusion of Nonautologous Red Blood Cells into Peripheral Vein, Percutaneous Approach (ICD-10-PCS; principal; 2018-10-24)
DX: A41.9 Sepsis, unspecified organism (principal); K51.213 Ulcerative (chronic) proctitis with fistula; K51.313 Ulcerative (chronic) rectosigmoiditis with fistula; D50.0 Iron deficiency anemia secondary to blood loss (chronic); K21.9 Gastro-esophageal reflux disease without esophagitis; I10 Essential (primary) hypertension; J06.9 Acute upper respiratory infection, unspecified
CPT/HCPCS: 36415; 36430; 72193; 80048; 80053; 80069; 81001; 81025; 82270; 83540; 83605; 83735; 84100; 84484; 85025; 85651; 86140; 86850; 86900; 86901; 86920; 87040-91; 87045; 87075; 87086; 87177; 93005; 96365; 96375; 99291-25